=== PATIENT | female | born 2000 | race Caucasian/White ===

== ENCOUNTER 2023-06-13 07:47 | Emergency (ER) | payer OTHER ==
[~2023-06-13] VITALS: Ht 167.6 cm; Wt 84.1 kg
[2023-06-13 10:04] VITALS: TEMP 98
[2023-06-13 10:06] VITALS: BP 100/86; PULSE 75; RESP 16; O2SAT 98
== END 2023-06-13 10:09 | disposition home or self-care (01) ==
LOC: ER 07:48
DX: S96.912A Strain of unspecified muscle and tendon at ankle and foot level, left foot, initial encounter (principal); X50.1XXA Overexertion from prolonged static or awkward postures, initial encounter; Y93.89 Activity, other specified; Y92.89 Other specified places as the place of occurrence of the external cause; Y99.8 Other external cause status
CPT/HCPCS: 29515; 73610; 73630; 99284